=== PATIENT | male | born 1980 | race African-American/Black ===

== ENCOUNTER 2019-08-17 07:01 | Emergency (ER) | payer SELFPAY ==
[~2019-08-17] VITALS: Ht 195.6 cm; Wt 91.0 kg
[2019-08-17] MEDS ORDERED: KETOROLAC 30MG/ML VIAL IV ONE (07:45)
[2019-08-17] MEDS ORDERED: SODIUM CHLORIDE 0.9% 1,000 ML IV ONE (07:45)
[2019-08-17] MEDS ORDERED: SUMATRIPTAN SUCCINATE 6MG/0.5ML VIAL SUBCUT ONE (07:45)
[2019-08-17 10:00] VITALS: BP 131/81
== END 2019-08-17 10:01 | disposition home or self-care (01) ==
LOC: ER 07:01
DX: R51 Headache (principal)
CPT/HCPCS: 96372; 96374; 99283; J1885; J3030; J7030